=== PATIENT | female | born 2000 | race Caucasian/White ===

== ENCOUNTER 2024-08-24 22:47 | Emergency (ER) | payer SELFPAY ==
[~2024-08-24] VITALS: Ht 160 cm; Wt 68.9 kg
[2024-08-24 23:37] LABS: BASOPHILS % (AUTO) 0.3 % (0-1); EOSINOPHILS % (AUTO) 0.1 % (0-6); HEMATOCRIT 39.7 % (35.0-45.0); HEMOGLOBIN 13.4 g/dl (12.0-16.0); LYMPHOCYTES # (AUTO) 0.8 X10'3 (1.1-4.8); LYMPHOCYTES % (AUTO) 5.3 % (21-51); MEAN CORPUSCULAR HEMOGLOBIN 31.7 PG (27.0-31.0); MEAN CORPUSCULAR HGB CONC 33.7 g/dL (33.0-36.5); MEAN CORPUSCULAR VOLUME 94.1 FL (78-98); MEAN PLATELET VOLUME 8.8 FL (7.4-10.4); MONOCYTES # (AUTO) 1.1 X10'3 (0-0.9); MONOCYTES % (AUTO) 7.6 % (2-12); NEUTROPHILS # (AUTO) 12.2 X10'3 (1.8-7.7); NEUTROPHILS % (AUTO) 86.7 % (42-75); PLATELET COUNT 164 X10'3 (140-440); RED BLOOD COUNT 4.21 X10'6 (4.20-5.60); RED CELL DISTRIBUTION WIDTH 13.9 % (11.5-14.5); WHITE BLOOD COUNT 14.1 X10'3 (4.5-11.0)
[2024-08-24 23:40] LABS: ALANINE AMINOTRANSFERASE 21 U/L (12-78); ALBUMIN 3.8 G/DL (3.4-5.0); ALBUMIN/GLOBULIN RATIO 1.5 (1.1-1.5); ALKALINE PHOSPHATASE 71 IU/L (46-116); ANION GAP 15 (8-16); ASPARTATE AMINO TRANSFERASE 36 U/L (10-37); BILIRUBIN,TOTAL 0.4 MG/DL (0.1-1.0); BLOOD UREA NITROGEN 14 MG/DL (7-18); BUN/CREATININE RATIO 14.3 (10.0-20.0); CALCIUM 8.4 MG/DL (8.5-10.1); CHLORIDE 107 MMOL/L (99-107); CREATININE 0.98 MG/DL (0.40-0.90); GLUCOSE 103 MG/DL (70-104); LIPASE 15 U/L (16-77); POTASSIUM 3.9 MMOL/L (3.5-5.1); SODIUM 148 MMOL/L (135-145); TOTAL CARBON DIOXIDE 26.1 MMOL/L (24-32); TOTAL PROTEIN 6.3 G/DL (6.4-8.2); eCRCL 74 ML/MIN; eGFR 71 ML/MIN
--- NOTE | 2024-08-25 01:24 | Physician Documentation ---
History of Present Illness Chief Complaint: Nausea Stated Complaint: HOUSBOAT INJURY Time Seen by MD: 01:24 Source: EMS Mode of Arrival: EMS HPI Patient presenting with nausea and vomiting. She was out on [facility] drinking earlier today then was out in the sun had acute onset nausea and vomiting which has since resolved after receiving Zofran per EMS Last Menstrual Period: August 21, 2024 Medication Reconciliation Allergies: Coded Allergies: No Known Allergies (Unverified , 08/25/24) Past Medical History Last Menstrual Period: August 21, 2024 Review of Systems All Other Systems at this time: Reviewed and Negative Gastrointestinal: Reports: nausea, vomiting; Denies: abdominal pain Physical Exam Vital Signs: Temperature: 97.7, Source: Oral, Heart Rate: 77, Respiratory Rate: 18, BP: 111/61, Pulse Oximetry: 99, Weight: 68.900 Oxygen Flow Rate: 0 Progress Progress Note I independently interpreted labs shows heme concentration Results/Orders Reviewed/noted all lab results: Yes Results/Orders Orders - MARGARETTE STEVENS MD Urinalysis, Cult If Indicated (08/24/24 22:50) Hcg, Ur Ql (08/24/24 22:50) Straight Cath For Urine Sample (08/24/24 22:50) Completed Orders - MARGARETTE STEVENS MD Cbc/Diff (08/24/24 22:50) Lipase (08/24/24 22:50) CMP (08/24/24 22:50) Vital Signs 08/24/24 08/24/24 08/24/24 22:49 22:59 22:59 Temp 97.7 Pulse 51 77 Resp 18 16 18 B/P (MAP) 98/65 111/61 (78) Pulse Ox 100 99 O2 Flow Rate 0 0 Laboratory Tests Test 08/24/24 23:14 White Blood Count 14.1 H Red Blood Count 4.21 Hemoglobin 13.4 Hematocrit 39.7 Mean Corpuscular Volume 94.1 Mean Corpuscular Hemoglobin 31.7 H Mean Corpuscular Hemoglobin Concent 33.7 Red Cell Distribution Width 13.9 Platelet Count 164 Mean Platelet Volume 8.8 Neutrophils (%) (Auto) 86.7 H Lymphocytes (%) (Auto) 5.3 L Monocytes (%) (Auto) 7.6 Eosinophils (%) (Auto) 0.1 Basophils (%) (Auto) 0.3 Neutrophils # (Auto) 12.2 H Lymphocytes # (Auto) 0.8 L Monocytes # (Auto) 1.1 H Eosinophils # (Auto) 0.0 Basophils # (Auto) 0.0 CBC Comment Sodium Level 148 H Potassium Level 3.9 Chloride Level 107 Carbon Dioxide Level 26.1 Anion Gap 15 Blood Urea Nitrogen 14 Creatinine 0.98 H Estimated GFR/1.73 m2 71 BUN/Creatinine Ratio 14.3 Glucose Level 103 Calcium Level 8.4 L Total Bilirubin 0.4 Aspartate Amino Transf (AST/SGOT) 36 Alanine Aminotransferase (ALT/SGPT) 21 Alkaline Phosphatase 71 Total Protein 6.3 L Albumin 3.8 Globulin 2.5 L Albumin/Globulin Ratio 1.5 Lipase 15 L Chemistry Comments Medical Decision Making Additional Comments Gastroenteritis, alcoholic ketoacidosis, other causes of nausea vomiting Departure Disposition: 01 HOME / SELF CARE / HOMELESS Impression: Primary Impression: Vomiting Qualified Codes: R11.2 - Nausea with vomiting, unspecified Additional Instructions: Drink plenty of fluids. Return to the emergency department if you have any reoccurrence of your symptoms. We have sent you home with 1 Ann-Marie which you may take tomorrow morning Referrals: NO PRIMARY CARE PROVIDER (PCP) Signature Scribe Signature: na Attestation: MARGARETTE De La Vega MD August 25, 2024 01:24
[2024-08-25] MEDS: ondansetron/PF 4mg/2ml inj IV ONE (01:40)
[2024-08-25] MEDS: ondansetron 4mg rapidly disintigrating tab PO ONE (02:39)
[2024-08-25 02:40] VITALS: BP 126/80; PULSE 74; RESP 18; TEMP 97.8; O2SAT 99
== END 2024-08-25 02:45 | disposition home or self-care (01) ==
LOC: ER 22:48
DX: R11.10 Vomiting, unspecified (principal)
CPT/HCPCS: 36415; 80053; 83690; 85025; 96374; 99285; J2405